=== PATIENT | female | born 1935 | race Caucasian/White ===

== ENCOUNTER 2024-03-08 11:00 | Outpatient (AMB) | payer MEDICARE, SELFPAY ==
--- NOTE | 2024-03-08 11:04 | A.OFFVIS_ITS ---
Vital Signs 03/08/24 11:05 Height 5 ft 7 in Weight 145 lb 1.027 oz BMI 22.7 BP 120/74 Blood Pressure Location Lt brachial Position Sitting Pulse 79 Pulse Source Pulse Oximeter Pulse Oximetry (%) 96 Oxygen Delivery Method Room Air Intake Visit Reasons: multiple joint pain, PMR/cm Intake Note: Patient is here externally referred by PCP for multiple joint pains. She states it's from head to toe. Allergies clindamycin Allergy (Mild, Verified 03/08/24 09:26) urticaria morphine Allergy (Mild, Verified 03/08/24 09:26) tramadol amoxicillin Adverse Reaction (Mild, Verified 03/08/24 09:26) Diarrhea melatonin Adverse Reaction (Mild, Verified 03/08/24 09:26) Nightmare Medication List - Last Reconciled 03/08/24 by Shalonda Nation MD acetylcysteine (NAC) 600 mg PO BID calcium acetate(phosphat bind) 667 mg PO ONCE digoxin 125 mcg PO DAILY famotidine 20 mg PO DAILY fluticasone propion-salmeterol 115-21 mcg/actuation (Advair HFA) 2 puffs inhalation BID furosemide 40 mg PO DAILY magnesium oxide 400 mg PO DAILY metoprolol succinate ER 200 mg PO DAILY multivitamin 1 tab PO DAILY pantoprazole 40 mg PO BID rivaroxaban (Xarelto) 15 mg PO DAILY sucralfate 1 g PO QID HPI Comments Details: Patient is an 89-year-old female with hypertension complicated by TIA, hyperlipidemia, Alec's thyroiditis, atrial fibrillation, sick sinus syndrome status post pacemaker placement, nonalcoholic fatty liver disease who presents for evaluation of polyarthralgias and elevated inflammatory markers. Hospitalized May 2023 for PNA with concomitant pleural effusion s/p drainage. Was in rehab for a few weeks and subsequently had a full pacemaker. Then started to notice pain in the shoulders and hands. She also has a history of bilateral shoulder arthritis and has been working with occupational therapy and uses Tylenol for pain. She denies any stiffness to her shoulders or any difficulty getting objects that are above her head or combing her hair. She denies headache, blurry vision or vision changes. Denies difficulty swallowing. She denies any difficulty walking up and down stairs although she says she does not have many stairs where she lives. She denies any pain or stiffness to the hips. No prolonged morning stiffness in the hands. No overt fatigue or changes in her weight. 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 Tubular adenoma Thyroid nodule Pulmonary nodule Osteopenia Osteoarthritis of shoulders, bilateral Lumbar spondylolysis Alec's disease GERD (gastroesophageal reflux disease) Gallstones Finger fracture, left Fatty liver Essential hypertension Dyslipidemia DJD (degenerative joint disease) Chronic allergic rhinitis Chronic cough Cardiomyopathy Bronchiectasis Atrial fibrillation Cauda equina compression H/O sigmoidoscopy Surgical History (Updated 03/08/24 @ 09:07 by Jessie Yates [facility]) S/P placement of cardiac pacemaker H/O excision of lamina of lumbar vertebra for decompression of spinal cord H/O laminectomy S/P tonsillectomy S/P colonoscopy Review of Systems Const Details: Review of Systems Constitutional: Denies fever, chills, weight loss ENT: Denies vision changes, eye pain or eye redness, dental caries, dry mouth GI: Denies nausea, vomiting, diarrhea, abdominal pain, change in BM Pulm: Denies SOB, SKAGGS, hemoptysis, wheezing Cards: Denies chest pain, palpitations Skin: Denies Raynaud's, rash, nail changes, photosensitivity, TECHNOLOGY INTERN: Denies headaches, weakness, paresthesias, recurrent falls MSK: as per HPI All other systems reviewed and are unremarkable except noted above Physical Exam Vital Signs: Last Vital Signs Pulse 79 03/08/24 11:05 BP 120/74 03/08/24 11:05 Pulse Ox 96 03/08/24 11:05 Oxygen Delivery Method Room Air 03/08/24 11:05 BMI result Body Mass Index 22.7 Physical Examination Patient well appearing and in no apparent painful distress Able to rise from chair without support. ?Gait normal. Constitutional Mucous membranes pink and moist patient alert and cooperative HEENT Conjunctiva and sclera clear. ?Pupils equal round and reactive to light. ?No lymphadenopathy. Respiratory System Normal respiratory effort and able to speak in complete sentences. ?Clear to auscultation bilaterally. ?No crackles, rales, rhonchi, wheezes heard. Cardiac System Regular rate and rhythm. ?S1 and S2 heard no murmurs. ?Radial pulses intact bilaterally MSK Hands:.??No pain with palpation of the MCPs, PIPs or DIPs. DIPs noted to have Heberden's nodes throughout hands.. Wrists: Normal pain-free range of motion without tenderness, swelling, increased warmth or erythema. Elbows: Full range of motion without pain. No tenderness, weakness, swelling, increased warmth or erythema. Shoulders: Full range of motion without pain. There was some point tenderness to the subacromial bursa on the right. No tenderness to palpation of the AC joint on the right. Left shoulder with alternate abnormalities. Has good strength shoulder flexion, extension, abduction and adduction. Hips: Full range of motion without pain. Hip bursa:.??No tenderness. Knees:.???Left knee with trace effusion and crepitations tenderness to palpation in the lateral aspect of the joint. Right knee without abnormalities. Ankles:.??Normal pain-free range of motion without tenderness, swelling, increased warmth or erythema. Feet:.??Normal pain-free range of motion without tenderness, swelling, increased warmth or erythema. Tender points:??No tenderness to digital palpation at the occiput, trapezius, second rib, lateral epicondyle, knees, greater trochanter bilaterally, and left gluteal. Results Reviewed Results Reviewed: 12/27/2023: ESR 18, CRP 33 both elevated 10/05/2023. Shoulder x-rays. Right and left. : Narrowing of the glenohumeral articulation with osteophyte formation. AC joint overgrowth is noted. Consistent with osteoarthritis Assessment & Plan Assessment & Plan (1) Osteoarthritis of shoulders, bilateral: Code(s): M19.011 - Primary osteoarthritis, right shoulder; M19.012 - Primary osteoarthritis, left shoulder Category: Medical Qualifiers: Osteoarthritis type: primary Qualified Code(s): M19.011 - Primary osteoarthritis, right shoulder; M19.012 - Primary osteoarthritis, left shoulder Plan: #Primary OA Bilateral shoulders R>L Patient is sent for evaluation of PMR in the setting of bilateral shoulder pain with elevated inflammatory markers. At this time I have low suspicion for polymyalgia rheumatica/giant cell arteritis. She does not have any difficulty or stiffness in her shoulders. Her pain on exam was look gated in the subacromial bursa area. She had good strength bilaterally. I gave her an injection in her right subacromial bursa today (2) Osteoarthritis involving multiple joints on both sides of body: Code(s): M15.9 - Polyosteoarthritis, unspecified Category: Medical Plan: #OA Patient has osteoarthritis involving multiple joints in the body including her knees and her hands. She had a trace effusion noted in her left knee I gave her a steroid injection to the left knee today. Her hands have evidence of osteoarthritis without any history of prolonged morning stiffness. We will do our due diligence and check x-rays of her hands and wrists as well as RF and CCP. Plan I spent 35 minutes reviewing the record and labs, seeing the patient, discussing the treatment plan and documenting in the medical record ? Orders: Orders XR hand wrist RT Today M15.9 - Polyosteoarthritis, unspecified, M19.011 - Primary osteoarthritis, right shoulder, M19.012 - Primary osteoarthritis, left shoulder Erythrocyte Sedimentation Rate Today M15.9 - Polyosteoarthritis, unspecified, M19.011 - Primary osteoarthritis, right shoulder, M19.012 - Primary oste oarthritis, left shoulder Complete Blood Count Auto Diff Today M15.9 - Polyosteoarthritis, unspecified, M19.011 - Primary osteoarthritis, right shoulder, M19.012 - Primary o steoarthritis, left shoulder Comprehensive Met. Panel Today M15.9 - Polyosteoarthritis, unspecified, M19.011 - Primary osteoarthritis, right shoulder, M19.012 - Primary osteoarthritis, left shoulder AMB Joint Injection/Aspiration Today M17.12 - Unilateral primary osteoarthritis, left knee, M19.011 - Primary osteoarthritis, right shoulder, M19.012 - Primary osteoarthritis, left shoulder XR hand wrist LT Today M15.9 - Polyosteoarthritis, unspecified, M19.011 - Primary osteoarthritis, right shoulder, M19.012 - Primary osteoarthritis, left shoulder C Reactive Protein Today M15.9 - Polyosteoarthritis, unspecified, M19.011 - Primary osteoarthritis, right shoulder, M19.012 - Primary osteoarthritis, left shoulder Cyclic Citrullinated Peptide Today M15.9 - Polyosteoarthritis, unspecified, M19.011 - Primary osteoarthritis, right shoulder, M19.012 - Primary osteoa rthritis, left shoulder Rheumatoid Factor Today M15.9 - Polyosteoarthritis, unspecified, M19.011 - Primary osteoarthritis, right shoulder, M19.012 - Primary osteoarthritis, left shoulder AMB Joint Injection/Aspiration Today M19.011 - Primary osteoarthritis, right shoulder, M19.012 - Primary osteoarthritis, left shoulder Coding Level of Care Code Est Pt Level 3 (32963) Diagnoses Primary osteoarthritis of both shoulders M19.011; M19.012 Osteoarthritis type: primary Osteoarthritis involving multiple joints on both sides of body M15.9
[2024-03-08 11:05] VITALS: BP 120/74; PULSE 79; O2SAT 96; BMI 22.7
== END 2024-03-08 12:13 | disposition home or self-care (01) ==
PROVIDERS: PCP Internal Medicine; Visit Provider Student in an Organized Health Care Education/Training Program
DX: M15.9 Polyosteoarthritis, unspecified (principal); M19.011 Primary osteoarthritis, right shoulder; M19.012 Primary osteoarthritis, left shoulder
CPT/HCPCS: 99213

== ENCOUNTER 2024-03-08 11:00 | Outpatient (REF) | payer MEDICARE, SELFPAY ==
--- NOTE | ~2024-03-08 | XR_ITS ---
EXAMINATION: XR HAND/WRIST LEFT 4 VIEWS CLINICAL INFORMATION: Primary osteoarthritis, M19.011. COMPARISON: None available. TECHNIQUE: PA, lateral, navicular, and oblique views of the left hand and wrist. FINDINGS: There is osteopenia. The bones and soft tissues are otherwise normal. No fracture. Alignment is anatomic. Moderate joint space narrowing at the third and fourth PIP joints as well the radial-carpal joints. There is atherosclerotic soft tissue calcifications. XR/XR hand wrist LT IMPRESSION: Mild degenerative disease of the left hand and wrist. Electronically signed by: Jessica Fitzgerald MD 04/30/2024 10:00 AM EST Workstation: [id number]
--- NOTE | ~2024-03-08 | XR_ITS ---
EXAMINATION: XR HAND/WRIST RIGHT 4 VIEWS CLINICAL INFORMATION: Primary osteoarthritis, right shoulder M19.011. COMPARISON: None available TECHNIQUE: PA, navicular, lateral, and oblique views of the right hand and wrist. FINDINGS: The bones and soft tissues are normal. No fracture. Alignment is anatomic. Joint spaces are maintained. No erosions or soft tissue calcifications. XR/XR hand wrist RT IMPRESSION: Normal radiographs of the hand and wrist. Electronically signed by: Jessica Fitzgerald MD 04/27/2024 02:22 PM [facility]
[2024-03-08 12:53] LABS: MANUAL DIFF FLAG NO
[2024-03-08 14:09] LABS: Basophils Percent Auto 0.6 % (0-2); Eosinophils Absolute Auto 0.1 X10*3/uL (0.0-0.4); Eosinophils Percent Auto 1.9 % (0-4); Hematocrit 42.5 % (37.0-47.0); Imm Gran Abs Auto 0.02 X10*3/uL (0.00-0.03); Imm Gran Pct Auto 0.3 % (0.0-0.4); Lymphocytes Absolute Auto 1.3 X10*3/uL (1.2-4.9); Lymphocytes Percent Auto 19.4 % (20-40); Mean Corpuscular HGB Conc 32.9 g/dl (31.0-35.0); Mean Corpuscular Hemoglobin 29.7 pg (27.0-33.0); Mean Corpuscular Volume 90.2 fL (80.0-98.0); Mean Platelet Volume 9.8 fL (9.4-12.3); Monocytes Absolute Auto 0.6 X10*3/uL (0.1-1.2); Monocytes Percent Auto 8.3 % (2-11); Neutrophils Absolute Auto 4.8 x10*3/uL (2.0-8.3); Neutrophils Percent Auto 69.5 % (45-73); Platelet Count 234 X10*3/uL (160-400); Red Blood Count 4.71 X10*6/uL (4.20-5.50); White Blood Count 6.9 X10*3/uL (4.8-10.8)
[2024-03-08 15:01] LABS: Rheumatoid Factor < 13.0 IU/mL (<15.0)
[2024-03-08 15:04] LABS: Alanine Aminotransferase 16 U/L (0-31); Albumin Level 4.5 g/dL (3.5-5.0); Alkaline Phosphatase 94 U/L (39-117); Anion Gap 14 (12-20); Aspartate Amino Transferase 28 U/L (5-31); Bilirubin Total 0.7 mg/dL (0.0-1.0); Blood Urea Nitrogen 15 mg/dL (9-16); C Reactive Protein 1.13 mg/dL (< or = 0.50); Calcium 10.1 mg/dL (8.4-10.2); Carbon Dioxide 30 mmol/L (22-29); Chloride 104 mmol/L (96-108); Estimated Glomerular Filt Rate 60; Glucose Random 94 mg/dL (60-115); Potassium 3.6 mmol/L (3.3-5.1); Sodium 144 mmol/L (135-145); Total Protein 8.4 g/dL (6.5-8.0)
[2024-03-08 15:44] LABS: Erythrocyte Sedimentation Rate 34 MM/HR (0-20)
[2024-03-11 20:34] LABS: Cyclic Citrullinated Peptide <16 UNITS
== END 2024-03-08 11:01 | disposition home or self-care (01) ==
LOC: HO.XRAY 11:00
PROVIDERS: PCP Internal Medicine; Visit Provider Student in an Organized Health Care Education/Training Program
DX: M19.011 Primary osteoarthritis, right shoulder (principal); M19.012 Primary osteoarthritis, left shoulder; M15.9 Polyosteoarthritis, unspecified; M17.12 Unilateral primary osteoarthritis, left knee
CPT/HCPCS: 20610; 36415; 73110; 73130; 80053; 85025; 85652; 86140; 86200; 86431; 99212

== ENCOUNTER 2024-09-18 15:19 | Outpatient (AMB) | payer MEDICARE, SELFPAY ==
[2024-09-18 15:23] VITALS: BP 122/74; PULSE 74; O2SAT 96; BMI 23.9
--- NOTE | 2024-09-18 15:23 | MHC.OFFVIS ---
Vital Signs 09/18/24 15:23 Height 5 ft 7 in Weight 152 lb 8.958 oz BMI 23.9 BP 122/74 Blood Pressure Location Lt brachial Position Sitting Pulse 74 Pulse Source Pulse Oximeter Pulse Oximetry (%) 96 Oxygen Delivery Method Room Air Intake Visit Reasons: follow up Intake Note: Patient last seen by Doctor Shalonda Nation on 03/08/24. Presents today for Osteoarthritis follow up and X-ray LT/RT hand wrist/lab results. Allergies clindamycin Allergy (Mild, Verified 09/18/24 15:28) urticaria morphine Allergy (Mild, Verified 09/18/24 15:28) tramadol amoxicillin Adverse Reaction (Mild, Verified 09/18/24 15:28) Diarrhea melatonin Adverse Reaction (Mild, Verified 09/18/24 15:28) Nightmare Medication List - Last Reconciled 09/18/24 by Shalonda Nation MD acetylcysteine (NAC) 600 mg PO BID calcium acetate(phosphat bind) 667 mg PO ONCE digoxin 125 mcg PO DAILY famotidine 20 mg PO DAILY fluticasone propion-salmeterol 115-21 mcg/actuation (Advair HFA) 2 puffs inhalation BID furosemide 40 mg PO DAILY magnesium oxide 400 mg PO DAILY metoprolol succinate ER 200 mg PO DAILY multivitamin 1 tab PO DAILY pantoprazole 40 mg PO BID rivaroxaban (Xarelto) 15 mg PO DAILY sucralfate 1 g PO QID HPI Comments Details: Patient is an 89-year-old female with hypertension complicated by TIA, hyperlipidemia, Alec's thyroiditis, atrial fibrillation, sick sinus syndrome status post pacemaker placement, nonalcoholic fatty liver disease, and polyarticular OA here today for follow up Interval History: Patient last seen 03/08/24 with me. At that time she was establishing care for the management of polyarthralgias. Her exam was consistent with polyarticular osteoarthritis and she was given injection in the right subacromial bursa and left knee. Today, SHe reports good efficacy from the injections and still having benefit Currently complains of back pain which her primary gave her a medrol dose pack which helped her back pain Still complains of bilateral hand leg cramping. Rheumatologic History: Initial History by me: Patient is an 89-year-old female with hypertension complicated by TIA, hyperlipidemia, Alec's thyroiditis, atrial fibrillation, sick sinus syndrome status post pacemaker placement, nonalcoholic fatty liver disease who presents for evaluation of polyarthralgias and elevated inflammatory markers. Hospitalized May 2023 for PNA with concomitant pleural effusion s/p drainage. Was in rehab for a few weeks and subsequently had a full pacemaker. Then started to notice pain in the shoulders and hands. She also has a history of bilateral shoulder arthritis and has been working with occupational therapy and uses Tylenol for pain. She denies any stiffness to her shoulders or any difficulty getting objects that are above her head or combing her hair. She denies headache, blurry vision or vision changes. Denies difficulty swallowing. She denies any difficulty walking up and down stairs although she says she does not have many stairs where she lives. She denies any pain or stiffness to the hips. No prolonged morning stiffness in the hands. No overt fatigue or changes in her weight. Current Rheumatology Medication(s): [facility] Medical History (Updated 03/08/24 @ 13:57 by Shalonda Natino MD) Osteoarthritis involving multiple joints on both sides of body Varicose vein of leg Tubular adenoma Thyroid nodule Pulmonary nodule Osteopenia Osteoarthritis of shoulders, bilateral Lumbar spondylolysis Alec's disease GERD (gastroesophageal reflux disease) Gallstones Finger fracture, left Fatty liver Essential hypertension Dyslipidemia DJD (degenerative joint disease) Chronic allergic rhinitis Chronic cough Cardiomyopathy Bronchiectasis Atrial fibrillation Cauda equina compression H/O sigmoidoscopy Surgical History (Updated 03/08/24 @ 09:07 by Jessie Yates CMA) S/P placement of cardiac pacemaker H/O excision of lamina of lumbar vertebra for decompression of spinal cord H/O laminectomy S/P tonsillectomy S/P colonoscopy Review of Systems Const Details: Review of Systems Constitutional: Denies fever, chills, weight loss ENT: Denies vision changes, eye pain or eye redness, dental caries, dry mouth GI: Denies nausea, vomiting, diarrhea, abdominal pain, change in BM Pulm: Denies SOB, SKAGGS, hemoptysis, wheezing Cards: Denies chest pain, palpitations Skin: Denies Raynaud's, rash, nail changes, photosensitivity, ECONOMIC FORECASTER: Denies headaches, weakness, paresthesias, recurrent falls MSK: as per HPI All other systems reviewed and are unremarkable except noted above Physical Exam Vital Signs: Last Vital Signs Pulse 74 09/18/24 15:23 BP 122/74 09/18/24 15:23 Pulse Ox 96 09/18/24 15:23 Oxygen Delivery Method Room Air 09/18/24 15:23 BMI result Body Mass Index 23.9 Vital signs reviewed Physical Examination CONSTITUITIONAL Patient alert and cooperative. Well appearing and in no apparent painful distress HEENT Conjunctiva and sclera clear. ?Pupils equal round and reactive to light. ?No lymphadenopathy. ? CHEST/RESPIRATORY SYSTEM Normal respiratory effort and able to speak in complete sentences. ?Clear to auscultation bilaterally. ?Faint inspiratory wheeze but this cleared with a cough CARDIAC SYSTEM Regular rate and rhythm. ?S1 and S2 heard no murmurs. ?Radial pulses intact bilaterally MSK Hands: ?Able to make a fist. No synovitis noted to the MCPs, PIPs or DIPs. ?No tenderness to palpation of these joints. No deformities noted. ? Wrists: ?Full range of motion at the wrists without pain. ?No tenderness to palpation or synovitis noted to the wrists. Elbows: Full range of motion without pain. No tenderness, weakness, swelling, increased warmth or erythema. Shoulders: Full range of active range of motion without pain. No tenderness, weakness, swelling, increased warmth or erythema. Knees: ?Full range of motion. ?No tenderness, swelling, increased warmth or erythema.?Crepitations bilaterally Ankles: Full range of motion. ?No tenderness, swelling, increased warmth or erythema.? Feet: ?Negative squeeze test. ?No tenderness to palpation or swelling of the MTPs. Tender points:?No tenderness to palpation of the bilateral trapezius, supraspinatus, greater trochanters, anterior costochondral junctions, bilateral gluteal areas, bilateral suboccipital muscle insertions SKIN Skin intact without rashes. Results Reviewed Results Reviewed: Laboratory Tests 03/08/24 12:52 WBC 6.9 RBC 4.71 Hgb 14.0 Hct 42.5 Plt Count 234 ESR 34 H Sodium 144 Potassium 3.6 Chloride 104 Carbon Dioxide 30 H BUN 15 Creatinine 0.89 AST 28 ALT 16 Alkaline Phosphatase 94 C-Reactive Protein 1.13 H Rheumatoid Factor < 13.0 Cycl Citrul Peptide IgG <16 XR Bilateral hand and wrist 02/2024 FINDINGS (right hand/wrist): The bones and soft tissues are normal. No fracture. Alignment is anatomic. Joint spaces are maintained. No erosions or soft tissue calcifications. IMPRESSION: Normal radiographs of the right hand and wrist FINDINGS (Left hand/wrist): There is osteopenia. The bones and soft tissues are otherwise normal. No fracture. Alignment is anatomic. Moderate joint space narrowing at the third and fourth PIP joints as well the radial-carpal joints. There is atherosclerotic soft tissue calcifications. IMPRESSION: Mild degenerative disease of the left hand and wrist. Assessment & Plan Assessment & Plan (1) Osteoarthritis involving multiple joints on both sides of body: Code(s): M15.9 - Polyosteoarthritis, unspecified Category: Medical Plan: #Polyarticular OA Patient is an 89-year-old female with polyarticular osteoarthritis here today for follow up. Doing well after her steroid injections. Does not need any today. We will try alpha lipoic acid for 3 months to see if this will help with her hand cramping Plan - Alpha lipoic acid 600mg daily x 3 months. Patient to call for refill if helpful - RTC 6 months - Labs before visit: CBC, CMP, ESR, CRP Plan I spent 20 minutes reviewing the record and labs, taking a history, examining the patient, discussing the treatment plan, ordering diagnostic work up and documenting in the medical record Medications: New alpha lipoic acid 600 mg PO DAILY 90 tabs 0RF G62.9 - Polyneuropathy, unspecified Coding Level of Care Code Est Pt Level 3 (45270) Diagnoses Osteoarthritis involving multiple joints on both sides of body M15.9
--- OUTSIDE RECORDS SUMMARY | 2024-09-18 16:16 | XMS_ITS | Continuity of Care Document ---
Author Organization [facility] Address [address] [place] [address]- Care Team Providers Care Pageant Director Name Role Phone Champ WALKER, Pepper Primary Care Physician [place] [facility] [place]): [place] 09[place]17/24 [facility] [address] [place] [address] Encounter Diagnosis Lesion of left nipple(Discharge Diagnosis) - 09/10/24 Insomnia(Discharge Diagnosis) - 09/10/24 Essential hypertension(Discharge Diagnosis) - 09/10/24 Atrial fibrillation(Discharge Diagnosis) - 09/10/24 Cardiomyopathy(Discharge Diagnosis) - 09/10/24 DJD (degenerative joint disease), lumbar(Discharge Diagnosis) - 09/10/24 Attending Physician: Pepper Oakes MD Encounter Type: Office Visit Allergies, Adverse Reactions, Alerts Substance Criticality Severity Reaction Reaction Severity Status clindamycin Urticaria Active amoxicillin Unable to assess criticality Intermittent diarrhea Active melatonin High criticality Severe NIGHTMARES Ac tive traMADol HIVES Active morphine HEARTBURN Active Immunizations Given and Recorded Vaccine Date Status Refusal Reason influenza virus vaccine, inactivated 04/06/24 Reyes rded influenza virus vaccine, inactivated 02/19/24 Reyes rded influenza virus vaccine, inactivated 03/24/22 Reyes rded influenza virus vaccine, inactivated 02/18/21 Reyes rded influenza virus vaccine, inactivated 03/14/19 Reyes rded influenza virus vaccine, inactivated 03/02/18 Reyes rded influenza virus vaccine, inactivated 1 03/01/17 Gi alexis influenza virus vaccine, inactivated 03/21/16 Give n influenza virus vaccine, inactivated 11/16/15 Give n influenza virus vaccine, inactivated 2 02/06/13 Gi alexis influenza virus vaccine, inactivated 02/26/12 Reyes rded influenza virus vaccine, inactivated 3 02/26/11 Gi alexis influenza virus vaccine, inactivated 01/22/11 Reyes rded SARS-CoV-2(COVID-19)mRNA-LNP vac([id number]) 04/06/24 Recorded SARS-CoV-2(COVID-19)mRNA-LNP vac([id number]) 04/14/23 Recorded tetanus/diphtheria/pertussis, acel(Tdap) 4 03/04/24 Given pneumococcal 20-valent conjugate vaccine 07/11/23 Given [id number] bivalent booster vax 08/20/22 Recorded SARS-CoV-2 (COVID-19) mRNA-1273 vaccine 04/09/21 R ecorded SARS-CoV-2 (COVID-19) mRNA-1273 vaccine 08/11/20 R ecorded SARS-CoV-2 (COVID-19) mRNA-1273 vaccine 07/14/20 R ecorded Influenza Virus Vaccine (oldterm) 5 02/29/20 Recor ded pneumococcal 13-valent vaccine 02/26/19 Recorded pneumococcal 13-valent vaccine 09/29/14 Given Fluzone (oldterm) 6 02/26/14 Recorded Diphth-Tetanus Toxoids Adsorbed(oldterm) 12/10/07 Given Influenza Inactive (IM) (oldterm) 04/01/05 Given Pneumococcal Vaccine (oldterm) 06/06/02 Given tetanus-diphtheria toxoids (Td) 11/20/92 Given 1Result Comment: formerly named [facility] [phone] 2Admin Note: CDC info given to patient 3Admin Note: pieter 4Result Comment: [facility] [id number] 5Result Comment: [facility]Location History: [facility] Medications acetaminophen 325 mg oral capsule 2 capsule = 650 mg, By Mouth, Every 4 hours, PRN pain/fever, 0 Refills, Maintenance, 07/07/23 3:24:00 PM EST, Partial fill upon patient request if the prescription is for a schedule II opioid drug. Start Date: 07/07/23 Status: Ordered Repeat number: 1 Advair HFA 230 mcg / 21 mcg 2 puffs, Inhalation, 2 times a day, for 90 days, j45.40, # 3 each, 3 Refills, Hard Stop 10/30/26 1:04:00 PM EDT, 11/04/25 1:04:00 PM EDT, Aerosol, [id number], Partial fill upon patientrequest if the prescription is for a schedule II opioid drug., 2 puffs Inhalation 2 times a day,y45atty,Instr:j45.40, 169.7, cm, 03/07/24 13:31:00 EDT, Height, 65.5, kg, 10/10/23 4:43:00 EDT, Dry Weight Start Date: 11/04/25 Stop Date: 10/30/26 Status: Ordered Quantity: 3.0 Unit: each Repeat number: 4 Aerochamber w/Mask (Large) See Instructions, # 1 each, Maintenance, one puff to the chamber followed by 5 regular breaths. Repeat as instructed., 01/06/23 1:31:00 PM EDT, Supply, 172, cm, 01/06/23 13:04:00 EDT, Height, 59, kg, 06/03/22 8:07:00 EST, Dry Weight Start Date: 01/06/23 Status: Ordered Quantity: 1.0 Unit: each Repeat number: 1 Aerochamber w/Mask (Large) See Instructions, # 1 each, Maintenance, use as directed, 01/18/23 11:56:00 AM EDT, Supply, 172, cm, 01/06/23 13:04:00 EDT, Height, 59, kg, 06/03/22 8:07:00 EST, Dry Weight Start Date: 01/18/23 Status: Ordered Quantity: 1.0 Unit: each Repeat number: 1 amLODIPine 5 mg oral tablet 5 mg, 1, tablet, By Mouth, Daily, # 90 tablet, Refills 1, Tot. Refills 1, Maintenance, 06/25/24 11:11:00 AM EST, Route to Pharmacy Electronically, [facility] #[id number], Partial fill upon patient request if the prescription is for a schedule II opioid drug., 169.7, cm, 03/07/24 13:31:00 EDT, Height, 65.5, kg, 10/10/23 4:43:00 EDT, Dry Weight Start Date: 06/25/24 Status: Ordered Quantity: 90.0 Unit: tablet Repeat number: 2 calcium and vitamin D combination 600 mg-200 u oral tablet 1, tablet, By Mouth, 2 times a day, 0 Refills Start Date: 11/03/05 Status: Ordered Repeat number: 1 Digox 125 mcg (0.125 mg) oral tablet 1 tablet = 125 mcg, By Mouth, Daily, for 90 days, # 90 tablet, 1 Refills, Hard Stop 05/10/25 1:02:00 PM EST, 11/11/24 1:02:00 PM EDT, [facility] #[id number], Partial fill upon patient request if the prescription is for a schedule II opioid drug., 169.7, cm, 03/07/24 13:31:00 EDT, Height, 65.5, kg, 10/10/23 4:43:00 EDT, Dry Weight Start Date: 11/11/24 Stop Date: 05/10/25 Status: Ordered Quantity: 90.0 Unit: tablet Repeat number: 2 famotidine 20 mg oral tablet 1, tablet, By Mouth, Daily, # 90 tablet, Refills 3, Tot. Refills 3, Maintenance, 07/09/24 12:24:00 PM EST, Route to Pharmacy Electronically, [facility] #[id number], 169.7, cm, 03/07/24 13:31:00 EDT, Height, 65.5, kg, 10/10/23 4:43:00 EDT, Dry Weight Start Date: 07/09/24 Status: Ordered Quantity: 90.0 Unit: tablet Repeat number: 4 furosemide 40 mg oral tablet 40 mg, 1, tablet, By Mouth, Daily, # 90 tablet, Refills 1, Tot. Refills 1, Maintenance, 12/15/24 11:11:00 AM EDT, Route to Pharmacy Electronically, [facility] #[id number], Partial fill upon patient request if the prescription is for a schedule II opioid drug., 169.7, cm, 03/07/24 13:31:00 EDT, Height, 65.5, kg, 10/10/23 4:43:00 EDT, Dry Weight Start Date: 12/15/24 Stop Date: 06/13/25 Status: Ordered Quantity: 90.0 Unit: tablet Repeat number: 2 magnesium oxide 400 mg oral tablet = 400 mg, By Mouth, Daily, # 90 tablet, 2 Refills, Acute 07/09/25 1:17:00 PM EST, 01/09/25 8:00:00 AMEDT, Tablet, [facility] #[id number], Partial fill upon patient request if the prescription is for a schedule II opioid drug., 169.7, cm, 03/07/24 13:31:00 EDT, Height, 65.5, kg, 10/10/23 4:43:00EDT, Dry Weight Start Date: 01/09/25 Stop Date: 07/09/25 Status: Ordered Quantity: 90.0 Unit: tablet Repeat number: 3 metoprolol 100 mg oral tablet, extended release 200 mg, By Mouth, Daily, # 60 tablet, Refills 9, Tot. Refills 9, Maintenance, 07/22/24 11:29:00 AM EDT, Route to Pharmacy Electronically, [facility] #[id number], Partial fill upon patient requestif the prescription is for a schedule II opioid drug., 169.7, cm, 07/16/24 15:22:00 EST, Height, 65.5, kg, 10/10/23 4:43:00 EDT, Dry Weight Start Date: 07/22/24 Status: Ordered Quantity: 60.0 Unit: tablet Repeat number: 10 [facility] See Instructions, Refills 0, Maintenance, Hypertonic saline 3% - 1 inhalation via nebulizer 2 timesa day for COPD, 07/27/23 8:54:00 AM EDT, Supply Start Date: 07/27/23 Status: Ordered Repeat number: 1 Multivitamin By Mouth, Daily, 0 Refills, Maintenance, 01/21/11 2:55:36 PM EDT Start Date: 01/21/11 Status: Ordered Repeat number: 1 NAC 600 mg oral capsule 2 capsule = 1,200 mg, By Mouth, 2 times a day, j47.9, # 120 capsule, 6 Refills, Maintenance, 07/12/24 2:26:00 PM EST, [facility] #[id number], 169.7, cm, 03/07/24 13:31:00 EDT, Height, 65.5, kg, 10/10/23 4:43:00 EDT, Dry Weight Start Date: 07/12/24 Status: Ordered Quantity: 120.0 Unit: capsule Repeat number: 7 pantoprazole 40 mg oral delayed release tablet 1 tablet, By Mouth, 2 times a day, # 180 tablet, 3 Refills, Maintenance, 05/22/24 9:17:00 AM EST, 169.7, cm, 03/07/24 13:31:00 EDT, Height, 65.5, kg, 10/10/23 4:43:00 EDT, Dry Weight Start Date: 05/22/24 Status: Ordered Quantity: 180.0 Unit: tablet Repeat number: 4 sucralfate 1 gm oral tablet 1, tablet, By Mouth, 4 times a day, # 360 tablet, Refills 1, Maintenance, 02/02/24 8:55:00 AM EDT, Route to Pharmacy Electronically, [id number], 176, cm, 11/13/23 15:37:00 EDT, Height, 65.5, kg, 10/10/23 4:43:00 EDT, Dry Weight Start Date: 02/02/24 Status: Ordered Quantity: 360.0 Unit: tablet Repeat number: 1 traZODone 50 mg oral tablet 25 mg, 0.5, tablet, By Mouth, Daily at bedtime, PRN, # 15 tablet, Refills 1, Tot. Refills 1, Maintenance, Sleep, 09/10/24 2:36:00 PM EDT, Route to Pharmacy Electronically, [facility] #[id number],Partial fill upon patient request if the prescription is for a schedule II opioid drug., 169.7, cm,09/10/24 14:10:00 EDT, Height, 65.5, kg, 10/10/23 4:43:00 EDT, Dry Weight Start Date: 09/10/24 Status: Ordered Quantity: 15.0 Unit: tablet Repeat number: 2 Indication: Insomnia, unspecified Tums 500 PRN, 0 Refills, Maintenance, 06/08/22 9:56:00 AM EST, Partial fill upon patient request if the prescription is for a schedule II opioid drug. Start Date: 06/08/22 Status: Ordered Repeat number: 1 Xarelto 15 mg oral tablet 1 tablet = 15 mg, By Mouth, Daily at supper, # 30 tablet, 11 Refills, Maintenance, 05/31/24 2:11:00 PM EST, Tablet, [facility] #[id number], Partial fill upon patient request if the prescription is for a schedule II opioid drug., 169.7, cm, 03/07/24 13:31:00 EDT, Height, 65.5, kg, 10/10/23 4:43:00 EDT, Dry Weight Start Date: 05/31/24 Status: Ordered Quantity: 30.0 Unit: tablet Repeat number: 12 Problem List Condition Confirmation Course Effective Dates Status H ealth Status Informant Atherosclerosis of aorta Confirmed Active Atrial fibrillation Confirmed Active Osteoarthritis of shoulders, bilateral Confirmed Active Bronchiectasis Confirmed Active Cardiomyopathy Confirmed Active Chronic cough Confirmed Active Chronic Rhinitis Confirmed 2010 Active Dyslipidemia Confirmed 2002 Active Essential hypertension Confirmed 2000 Active Finger fracture, left Confirmed Active Gallstone Confirmed Active GERD (gastroesophageal reflux disease) Confirmed Active 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 Insomnia Confirmed Active Lumbar spondylosis Confirmed 2007 Active DJD (degenerative joint disease), lumbar Confirmed Active Pulmonary nodule Confirmed Active Osteopenia Confirmed Active Fatty liver Confirmed Active Thyroid nodule Confirmed Active Tubular adenoma Confirmed 02/2006 Active Varicose veins of leg Confirmed Active Diagnosis Diagnosis Type Effective Dates Health Status Clinical Service Informant Essential hypertension Discharge Diagnosis 09/10/24 Atrial fibrillation Discharge Diagnosis 09/10/24 Cardiomyopathy Discharge Diagnosis 09/10/24 Lesion of left nipple Discharge Diagnosis 09/10/24 Insomnia Discharge Diagnosis 09/10/24 DJD (degenerative joint disease), lumbar Discharge Diagnosis 09/10/24 Vital Signs Most recent to oldest [Reference Range]: 1 Height 169.7 cm (09/10/24 2:10 PM) Weight 70.6 kg (09/10/24 2:10 PM) Oxygen Saturation [94-100 %] 95 % (09/10/24 2:10 PM) Pulse Rate [55-90 bpm] 91 bpm *H* (09/10/24 2:10 PM) Body Mass Index [18.5-24.99 kg/m2] 24.52 kg/m2 (09/10/24 2:10 PM) Blood Pressure [90-138/55-84 mm Hg] 126/ 71mm Hg (09/10/24 2:10 PM) Mode of Delivery (Oxygen) Room air (09/10/24 2:10 PM) Blood pressure sites Arm, right (09/10/24 2:10 PM) Social History Social History Type Response Smoking Status Never (less than 100 in lifetime) entered on: 11/26/21 Sex Sex Representation Female (finding) Note * Zenobia Mims: PERFORM Event Display: Patient Education/Instruction Authored Date: [id number] Ambulatory Adult Visit Summary [facility] [address] [place] [address] Name: NURIA RICE : 1935?? Visit: 09/10/2024 14:09?? Ambulatory Visit Instructions ?? Your Care Team Primary Care Provider Pepper Oakes MD? This Visit Provider Pepper Oakes MD Your Diagnosis Essential hypertension Dyslipidemia Atrial fibrillation Cardiomyopathy Lesion of left nipple Insomnia Vitals Signs Pulse Rate:??91 bpm??High Height: 169.7 cm Systolic Blood Pressure: 126 mm Hg Weight: 70.6 kg Diastolic Blood Pressure: 71 mm Hg Body Mass Index: 24.52 kg/m2 Oxygen Saturation: 95 % Body surface area: 1.82 What to do next Scheduled Follow-Up Appointments 2024 12:40 PM EDT ?? Where: [facility] [address] [place] [id number]- Status: Pending Future Orders MM Digital Mammo Unilat Left, Routine, Reason for Exam: Other:, Conditional Orders: MM Diag/US Breast/Guided Asp/Breast Bx, Patient Does Not Need Assistance, Once, *Est. 09/10/24, Order for Today US Breast Left Limited, Routine, Reason for Exam: Palpable Mass, Conditional Orders: MM Diag/GuidedAsp/Breast Bx, Patient Does Not Need Assistance, Once, *Est. 09/10/24 Calprotectin Fecal - Routine, Once, 07/16/24 15:57:00 EST, Single or Recurring Future Order, [facility], Stool?? CBC - Routine, Once, 09/10/24 14:34:00 EDT, Order for Today, [facility], Blood?? Basic Metabolic Panel (BMP) - Routine, Once, 09/10/24 14:34:00 EDT, Order for Today, [facility], Blood?? Medications The list below reflects the information in our records and provided by you today along with any changes made during this visit. Please continue your medications until treatment is completed or stopped by your provider. If this is different from the information you have or there are other questions,please contact the prescribing provider. What How Much When Why Instructions New Trazodone (traZODone 50 mg oral tablet) 0.5 tab(s) Oral Daily at Bedtime as needed for Sleep Insomnia Refills: 1 Pickup at [facility] #[id number] Unchanged Acetaminophen (acetaminophen 325 mg oral capsule) 2 capsule Oral Every 4 hours PRN pain/ fever ?? Unchanged Acetylcysteine (NAC 600 mg oral capsule) 2 capsule Oral Twice a day j47.9 ?? Unchanged Amlodipine (amLODIPine 5 mg oral tablet) 1 tab(s) Oral Daily Unchanged Calcium And Vitamin D Combination (calcium and vitamin D combination 600 mg-200 u oral tablet) 1 tab(s) Oral Twice a day Unchanged Calcium Carbonate (Tums 500) PRN ?? Unchanged Digoxin (Digox 125 mcg (0.125 mg) oral tablet) 1 tab(s) Oral Daily Duration: 90 Days Unchanged Durable Medical Equipment (Aerochamber w/ Mask (Large)) See instructions use as directed ?? Unchanged Durable Medical Equipment (Aerochamber w/ Mask (Large)) See instructions one puff to the chamber followed by 5 regular breaths. Repeat as instructed. ?? Unchanged Famotidine (famotidine 20 mg oral tablet) 1 tab(s) Oral Daily Unchanged Fluticasone-Salmeterol (Advair HFA 230 mcg / 21 mcg) 2 puff(s) Inhalation Twice a day Duration: 90 Days j45.40 ?? Unchanged Furosemide (furosemide 40 mg oral tablet) 1 tab(s) Oral Daily Duration: 90 Days Unchanged Magnesium Oxide (magnesium oxide 400 mg oral tablet) 400 Milligram Oral Daily Unchanged Metoprolol (metoprolol 100 mg oral tablet, extended release) 200 Milligram Oral Daily Unchanged Miscellaneous Rx (Misc Rx) See instructions Hypertonic saline 3% - 1 inhalation via nebulizer 2 times a day for COPD ?? Unchanged Multivitamin Oral Daily Unchanged Pantoprazole (pantoprazole 40 mg oral delayed release tablet) 1 tab(s) Oral Twice a day Unchanged rivaroxaban (Xarelto 15 mg oral tablet) 1 tab(s) Oral Daily at supper Unchanged Sucralfate (sucralfate 1 gm oral tablet) 1 tab(s) Oral 4 times a day Pharmacy Information [facility] #[id number]: [address], [place] [id number] [phone] Test Performed Below is a partial list of the tests performed during your Visit. You may have had other tests and procedures not included in this list. Please discuss all test results with your provider. Basic Metabolic Panel (BMP)?-- Results Pending -- CBC?-- Results Pending -- Medications and Immunizations Administered Medications Given During Visit No medications given during this visit.?? Allergies (NKA means No Known Allergies) melatonin??(NIGHTMARES) amoxicillin??(diarrhea) clindamycin??(Urticaria) morphine??(HEARTBURN) traMADol??(HIVES) Common Emergency Awareness Tips IS IT A STROKE? Act FAST and Check for these signs: FACE Does the face look uneven? ARM Does one arm drift down? SPEECH Does their speech sound strange? TIME Call at any sign of stroke ?? Heart Attack Signs Chest discomfort: Most heart attacks involve discomfort in the center of the chest and lasts more than a few minutes, or goes away and comes back. It can feel like uncomfortable pressure, squeezing, fullness or pain. Discomfort in upper body: Symptoms can include pain or discomfort in one or both arms, back, neck, jaw or stomach. Shortness of breath: With or without discomfort. Other signs: Breaking out in a cold sweat, nausea, or lightheaded. Remember, MINUTES DO MATTER. If you experience any of these heart attack warning signs, call to get immediate medical attention! ?? Smoking can increase your chances of developing chronic health problems and can cause harmful effects to other family members in your house. If you smoke, you are strongly encouraged to quit. Please call [facility] at [phone] or [phone] ([phone]) or log in to [email or web address] for referrals to smoking cessation programs. ?? The National Suicide Prevention Hotline is available 05/12 if you or someone you know needs to find a reason to keep living. By calling 5-025-182-kjta (9522) you'll be connected to a skilled, trained counselor at a crisis center in your area. [facility] [employer] Portal You can view and manage your care through the patient portal or by using a health care melissa of your choosing. [employer] is a website that allows you to securely view your medical information including your hospital discharge summary, office visit summaries, medications and follow-up visits. You can also request appointments, renew medications, and request access to your medical information using a health care melissa of your choosing, or just ask a question. You can enroll at [email or web address] or register during your next office visit. [facility], in keeping with [facility] guidance, no longer requires face masks for staff, patientsor visitors in most situations. Similiar to time spent indoors at other locations, there is the chance that you were exposed to repiratory viruses during your time with us (such as flu or COVID-19). If you develop symptoms concerning for a viral respiratory infection, please seek testing (and treatment if indicated) from your medical provider or home test kit. ?? Disclaimer: The information provided is of a general nature and is intended to be used in conjunction with the recommendations and advice of your health care practitioner. Every effort has been made to ensure that the information provided is accurate and complete at the time it is provided to you however, as your needs change, or, as new information becomes available, different or additional instructions may be required. ?? If you have questions, please consult with your primary care provider or pharmacist, as appropriate. This information is not intended to serve as substitution for assessment and evaluation by a qualified health care provider. If you do not have a primary care provider, you may find a [facility] provider by calling [facility] [employer] Link at [phone]. Patient Care team information Care Team Personnel Name: Arlette Patel RN Position: S engineering systems analyst Member Role: Cable Armorer Name: Caitlyn Hogan RN Position: S RN Member Role: Primary Care Nurse Name: Riana Ryan RN Position: S RN Member Role: Primary Care Nurse Name: Kennedy Morley RN Position: S RN Member Role: Primary Care Nurse Name: Ammy Klein RN Position: [facility] RN Member Role: Primary Care Nurse Name: Yadira Ma RN Position: [facility] RN Member Role: Primary Care Nurse Name: Ronit Samuel Position: [facility] RN Member Role: Primary Care Nurse Name: Smiley Camejo RN Position: [facility] RN Member Role: Primary Care Nurse Name: Vik Ramirez RN Position: [facility] RN Member Role: Primary Care Nurse Name: Sofya Fitzgerald RN Position: [facility] RN Member Role: Primary Care Nurse Name: Yohan Reed RN Position: [facility] RN Member Role: Primary Care Nurse Name: Zo Falk RN Position: [facility] RN Member Role: Primary Care Nurse Name: Dirk Cramer RN Position: [facility] RN Member Role: Primary Care Nurse Name: Lalit Esteves RN Position: [facility] RN Member Role: Primary Care Nurse Name: Pepper Oakes MD Position: [facility] Physician - Primary Care Member Role: PCP Address: [address] [place] [address] Telecom: Name: Jordyn Luna RN Position: [facility] RN Member Role: Primary Care Nurse Name: Ko Garcai RN Position: [facility] RN Member Role: Primary Care Nurse Name: Mercedes Baez RN Position: [facility] RN Member Role: Primary Care Nurse Name: Reva Howard RN Position: [facility] RN Member Role: Primary Care Nurse Name: Destiney Malin RN Position: [facility] RN Member Role: Primary Care Nurse Name: Carly Jones RN Position: [facility] RN Member Role: Primary Care Nurse Name: Az Joseph RN Position: [facility] RN Member Role: Primary Care Nurse Name: Katheryn Yeh RN Position: [facility] RN Member Role: Primary Care Nurse Name: Nuria Carson RN Position: [facility] Hospital Managed Care Coordinator Member Role: Primary Care Nurse Care Team Related Persons Name: SANDHYA MOREIRA Name: NIMCO RICE Name: MARYANN GUEVARA Insurance Providers Guarantor name: [facility] Plan Information #: 1 Payer: MEDICARE PART B OUTPT Member Number: [id number] Policy Number: NA Group Number: NA Health Plan Information #: 2 Payer: MEDEX Member Number: [id number] Policy Number: NA Group Number: NA
== END 2024-09-18 15:51 | disposition home or self-care (01) ==
LOC: HO.RHE 15:19
PROVIDERS: PCP Internal Medicine; Visit Provider Student in an Organized Health Care Education/Training Program
DX: M15.9 Polyosteoarthritis, unspecified (principal)
CPT/HCPCS: 99213

== ENCOUNTER → 2024-09-18 15:19 | Outpatient (BNVA) | payer MEDICARE, SELFPAY | PROVIDERS: PCP Internal Medicine; Visit Provider Student in an Organized Health Care Education/Training Program | DX: M15.9 Polyosteoarthritis, unspecified (principal) | CPT/HCPCS: 99212 ==

== ENCOUNTER 2025-03-20 12:22 | Outpatient (AMB) | payer MEDICARE, SELFPAY ==
--- NOTE | 2025-03-20 12:37 | A.OFFVIS_ITS ---
Vital Signs 03/20/25 12:47 Height 5 ft 7 in Weight 155 lb 3.287 oz BMI 24.3 BP 130/78 Blood Pressure Location Lt brachial Position Sitting Pulse 89 Pulse Source Pulse Oximeter Pulse Oximetry (%) 98 Oxygen Delivery Method Room Air Intake Visit Reasons: follow up Intake Note: Patient presents for Osteoarthtritis follow up. Patient c/o of pain all over, especially LT knee and RT shoulder. Patient also stated she is cramping on both hands and legs at night. Allergies clindamycin Allergy (Mild, Verified 03/20/25 12:44) urticaria morphine Allergy (Mild, Verified 03/20/25 12:44) tramadol amoxicillin Adverse Reaction (Mild, Verified 03/20/25 12:44) Diarrhea melatonin Adverse Reaction (Mild, Verified 03/20/25 12:44) Nightmare Medication List - Last Reconciled 03/20/25 by Shalonda Nation MD acetylcysteine (NAC) 600 mg PO BID calcium acetate(phosphat bind) 667 mg PO ONCE famotidine 20 mg PO DAILY fluticasone propion-salmeterol 115-21 mcg/actuation (Advair HFA) 2 puffs inhalation BID furosemide 40 mg PO DAILY magnesium oxide 400 mg PO DAILY multivitamin 1 tab PO DAILY pantoprazole 40 mg PO BID rivaroxaban (Xarelto) 15 mg PO DAILY sucralfate 1 g PO QID HPI Comments Details: Patient is an 89-year-old female with hypertension complicated by TIA, hyperlipidemia, Alec's thyroiditis, atrial fibrillation, sick sinus syndrome status post pacemaker placement, nonalcoholic fatty liver disease, and polyarticular OA here today for follow up Interval History: Patient last seen 09/18/24 with me. - Not on DMARDs - She reports good efficacy from the injections and still having benefit - Currently complains of back pain which her primary gave her a medrol dose pack which helped her back pain - Still complains of bilateral hand leg cramping - Trialed alpha lipoic acid Today - Not on DMARDs - Alpha lipoic acid did not help much - Knee and shoulder pain were improved for a year after the first injection but sx have returned, requesting another injection today - Bilateral hand pain and cramping. Topical diclofenac helps but patient only uses it once a day - Also complaining of back pain - Tried gabapentin in the past but this was not helpful Rheumatologic History: Initial History by me: Patient is an 89-year-old female with hypertension complicated by TIA, hyperlipidemia, Alec's thyroiditis, atrial fibrillation, sick sinus syndrome status post pacemaker placement, nonalcoholic fatty liver disease who presents for evaluation of polyarthralgias and elevated inflammatory markers. Hospitalized May 2023 for PNA with concomitant pleural effusion s/p drainage. Was in rehab for a few weeks and subsequently had a full pacemaker. Then started to notice pain in the shoulders and hands. She also has a history of bilateral shoulder arthritis and has been working with occupational therapy and uses Tylenol for pain. She denies any stiffness to her shoulders or any difficulty getting objects that are above her head or combing her hair. She denies headache, blurry vision or vision changes. Denies difficulty swallowing. She denies any difficulty walking up and down stairs although she says she does not have many stairs where she lives. She denies any pain or stiffness to the hips. No prolonged morning stiffness in the hands. No overt fatigue or changes in her weight. Current Rheumatology Medication(s): [facility] Medical History (Updated 03/20/25 @ 13:27 by Shalonda Nation MD) Osteoarthritis involving multiple joints on both sides of body Varicose vein of leg Tubular adenoma Thyroid nodule Pulmonary nodule Osteopenia Osteoarthritis of shoulders, bilateral Lumbar spondylolysis Alec's disease GERD (gastroesophageal reflux disease) Gallstones Finger fracture, left Fatty liver Essential hypertension Dyslipidemia DJD (degenerative joint disease) Chronic allergic rhinitis Chronic cough Cardiomyopathy Bronchiectasis Atrial fibrillation Cauda equina compression H/O sigmoidoscopy Surgical History S/P placement of cardiac pacemaker H/O excision of lamina of lumbar vertebra for decompression of spinal cord H/O laminectomy S/P tonsillectomy S/P colonoscopy Social History Household Members: None Housing: Condominium Alcohol intake: never Patient Tobacco Use Status: Never used Tobacco Review of Systems Narrative Review of Systems Constitutional: Denies fever, chills, weight loss ENT: Denies vision changes, eye pain or eye redness, dental caries, dry mouth GI: Denies nausea, vomiting, diarrhea, abdominal pain, change in BM Pulm: Denies SOB, SKAGGS, hemoptysis, wheezing Cards: Denies chest pain, palpitations Skin: Denies Raynaud's, rash, nail changes, photosensitivity, 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 Well appearing and in no apparent painful distress MSK Hands * Right Hand: Able to make a fist. No swelling or tenderness to palpation of the MCPs, PIPs or DIPs. * Left Hand: Able to make a fist. No swelling or tenderness to palpation of the MCPs, PIPs or DIPs. * Herbedens nodes noted bilaterally Wrists * Right Wrist: Full ROM to flexion and extension. No swelling or TTP * Left Wrist: Full ROM to flexion and extension. No swelling or TTP Elbows * Right Elbow: Full ROM. No swelling or TTP. No TTP of the medial epicondyle. No TTP of the lateral epicondyle * Left Elbow: Full ROM. No swelling or TTP. No TTP of the medial epicondyle. No TTP of the lateral epicondyle Shoulders * Right shoulder: No swelling noted. No TTP of the AC joint. TTP of the subacromial bursa. No TTP of the posterior shoulder * Left shoulder: No swelling noted. No TTP of the AC joint. No TTP of the subacromial bursa. No TTP of the posterior shoulder * Decreased ROM Bilaterally Knees * Right knee: No swelling noted. No TTP of the knee joint line. No TTP of pes anserine bursa * Left knee: No swelling noted. No TTP of the knee joint line. No TTP of pes anserine bursa. * Crepitations felt bilaterally Ankles * Right ankle: Good ankle dorsiflexion and plantar flexion. No swelling. No TTP of the ankle joint * Left ankle: Good ankle dorsiflexion and plantar flexion. No swelling. No TTP of the ankle joint Feet * Right foot: Negative squeeze test * Left foot: Negative squeeze test Tender points? * No tenderness to palpation of the bilateral trapezius, supraspinatus, anterior costochondral junctions, bilateral suboccipital muscle insertions SKIN No rashes Results Reviewed Results Reviewed: Laboratory Tests 03/08/24 12:52 WBC 6.9 RBC 4.71 Hgb 14.0 Hct 42.5 Plt Count 234 ESR 34 H Sodium 144 Potassium 3.6 Chloride 104 Carbon Dioxide 30 H BUN 15 Creatinine 0.89 AST 28 ALT 16 C-Reactive Protein 1.13 H Laboratory Tests 03/08/24 12:52 Rheumatoid Factor < 13.0 Cycl Citrul Peptide IgG <16 XR Bilateral Wrist 02/2024 FINDINGS (Left): There is osteopenia. The bones and soft tissues are otherwise normal. No fracture. Alignment is anatomic. Moderate joint space narrowing at the third and fourth PIP joints as well the radial-carpal joints. There is atherosclerotic soft tissue calcifications. IMPRESSION: Mild degenerative disease of the left hand and wrist. FINDINGS (Right): The bones and soft tissues are normal. No fracture. Alignment is anatomic. Joint spaces are maintained. No erosions or soft tissue calcifications. IMPRESSION: Normal radiographs of the hand and wrist. Assessment & Plan Assessment & Plan (1) Osteoarthritis involving multiple joints on both sides of body: Comment: Right shoulder subacromial bursa and left knee OA injection 02/2024 Code(s): M15.9 - Polyosteoarthritis, unspecified Category: Medical Plan: #Polyarticular OA Patient is an 89-year-old female with polyarticular osteoarthritis here today for follow up. S/p right shoulder subacromial bursa and left knee OA injections today Plan - s/p steroid injection to left shoulder and right knee - RTC 6 months - Labs before visit: CBC., CMP, ESR, CRP Plan I spent 20 minutes reviewing the record and labs, taking a history, examining the patient, discussing the treatment plan, ordering diagnostic work up and documenting in the medical record Orders: Orders Comprehensive Met. Panel Today Z79.899 - Other intermediate accountant (current) drug therapy C Reactive Protein Today Z79.899 - Other snf (current) drug therapy Complete Blood Count Auto Diff Today Z79.899 - Other intermediate accountant (current) drug therapy Erythrocyte Sedimentation Rate Today Z79.899 - Other intermediate accountant (current) drug therapy Medications: Discontinued alpha lipoic acid Discontinued Reason: Doctor's Order 600 mg PO DAILY 90 tabs 0RF G62.9 - Polyneuropathy, unspecified Coding Level of Care Code Est Pt Level 3 (62255) Diagnoses Osteoarthritis involving multiple joints on both sides of body M15.9
[2025-03-20 12:47] VITALS: BP 130/78; PULSE 89; O2SAT 98; BMI 24.3
--- OUTSIDE RECORDS SUMMARY | 2025-03-20 15:16 | XMS_ITS ---
Author Organization [facility] Care Team Providers Care [employer] Name Role Phone Luis Fernando Rodriguez Unavailable Unavailable Diana Clark Unavailable Unavailable Brooke Hilton Unavailable Unavailable Allergies and adverse reactions Code CodeSystem Substance Reaction Severity StartDate Concern Status 723 RXNORM Amoxicillin Unknown 06/23/2023 active 2582 RXNORM Clindamycin Unknown 06/23/2023 active 7052 RXNORM Morphine Unknown 06/23/2023 active 93289 RXNORM traMADol Unknown 06/23/2023 active Care Team Name Role Address Phone Organization Dates Diana Clark PCP [address], [place], [address], [place] (Office): : [facility] 06/24/2023 - 07/25/2023 Luis Fernando Rodriguez [address], [place], [address], [place] (Office): [facility] 06/24/2023 - 07/25/2023 Brooke Hilton [address] [place], [address], [facility] (Office): [facility] 06/24/2023 - 07/25/2023 Immunizations Immunization Status Vaccine Details Vaccine Code CodeSystem Lalit e Notes Influenza completed Influenza, high-dose, split virus, quadrivalent, injectable, preservative free 197 CVX created date: 07/21/2023 administere d date: 03/24/2022 TB 2 Step Mantoux Skin Test completed tuberculin skin test; unspecified formulation lotNumber: [id number] expiry: 04/14/2026 Mfg: [employer] pasteur Given 0.1 ml Right Forearm intradermally Step 1 of Multi-step 98 CVX created date: 07/09/2023 consent date: 07/09/2023 administere d date: 07/09/2023 Comirnaty (Azumio) COVID19 PDL292 completed SARS-COV-2 (COVID-19) vaccine, mRNA, spike protein, LNP, preservative free, 30 mcg/0.3mL dose, padma-sucrose formulation 217 CVX created date: 07/21/2023 administere d date: 04/14/2023 Mental Status Section Date Assessment Total Score Description 07/25/2023 BIMS 15 cognitively int act CAM 0 No delirium ind icated PHQ-9 01 minimal depress ion 06/26/2023 BIMS 14 cognitively int act CAM 0 No delirium ind icated PHQ-9 12 moderate depres deric Insurance Providers Problems Problem # Description Date of onset Resolved Date Code CodeSystem Concern Status 1 ADULT FAILURE TO THRIVE 06/23/[address] active 2 BODY MASS INDEX [BMI] 21.0-21.9, ADULT 06/23/[address] active 3 BRONCHIECTASIS, UNCOMPLICATED 06/23/[address] active 4 CALCULUS OF GALLBLADDER WITHOUT CHOLECYSTITIS WITHOUT OBSTRUCTION 06/23/[address] active 5 CHRONIC OBSTRUCTIVE PULMONARY DISEASE, UNSPECIFIED 06/23/[address] active 6 DIFFICULTY IN WALKING, NOT ELSEWHERE CLASSIFIED 06/23/[address] active 7 ESSENTIAL (PRIMARY) HYPERTENSION 06/23/[address] active 8 HEART FAILURE, UNSPECIFIED 06/23/[address] active 9 HYPERTENSIVE HEART DISEASE WITH HEART FAILURE 06/23/[address] active 10 MUSCLE WEAKNESS (GENERALIZED) 06/23/[address] active 11 OTHER FATIGUE 06/23/[address] acti ve 12 OTHER LACK OF COORDINATION 06/23/[address] active 13 PAROXYSMAL ATRIAL FIBRILLATION 06/23/[address] active 14 PYOTHORAX WITHOUT FISTULA 06/23/[address] active 15 UNSPECIFIED ATRIAL FIBRILLATION 06/23/[address] active 16 UNSPECIFIED SEVERE PROTEIN-CALORIE MALNUTRITION 06/23/[address] active Reason for Referral No Reasons for Referral Entered Social History Social History Observation Description Start Date End Date Code Code System Current Smoking Status Tobacco smoking consumption unknown 713707168 SNOMED CT Sex Assigned At Female 1935 53484-4 [facility] Gender Identity Sexual Orientation Vital Signs Code Code System Vitals Name Values and Units Timing Information 8867-4 [facility] Heart rate Ospfd=618.0 Units=/min 07/25/2023 64554-2 [facility] Pain Level Value=0.0 07/25/2023 75976-6 [facility] O2 % BldC Oximetry Value=93.0 Units= % 07/24/2023 9279-1 [facility] Respiratory Rate Value=18.0 Units=/m in 07/24/2023 8310-5 [facility] Body Temperature Value=97.8 Units= F 07/24/2023 8462-4 [facility] Blood Pressure-Diastolic Value=66 Un its=mmHg 07/24/2023 8480-6 [facility] Blood Pressure-Systolic Chypa=725 Un its=mmHg 07/24/2023 15776-3 [facility] Weight Ocnmm=016.2 Units=Lbs 10/2023 2339-0 [facility] Blood Sugar Value=16.0 Units=mg/dL 07/16/2023 8302-2 [facility] Height Value=68.0 Units=Inches 06/24/2023
== END 2025-03-20 13:28 | disposition home or self-care (01) ==
LOC: HO.RHES 12:22
PROVIDERS: PCP Internal Medicine; Visit Provider Student in an Organized Health Care Education/Training Program
DX: M17.12 Unilateral primary osteoarthritis, left knee (principal); M19.011 Primary osteoarthritis, right shoulder
CPT/HCPCS: 20610; 99213

== ENCOUNTER → 2025-03-20 12:22 | Outpatient (BNVA) | payer MEDICARE, SELFPAY | PROVIDERS: PCP Internal Medicine; Visit Provider Student in an Organized Health Care Education/Training Program | DX: M15.9 Polyosteoarthritis, unspecified (principal); M25.562 Pain in left knee; M25.511 Pain in right shoulder; Z79.899 Other long term (current) drug therapy | CPT/HCPCS: 20610; 99212; J2003; J3301 ==